=== PATIENT | male | born 1960 | race Two or more races ===

== ENCOUNTER 2016-10-12 17:03 | Emergency (ER) | payer OTHER ==
[2016-10-12] MEDS ORDERED: MAALOX/LIDO2%VISC/SIMETHICONE 40 ML BOT ONE (18:14)
[2016-10-12 18:31] LABS: ABSOLUTE NEUTROPHIL COUNT 4.8 K/mm3 (1.8-7.7); BASO % 0.4 % (0.2-1.0); EOS # 0.2 (0.0-0.5); EOS % 2.4 % (0.9-2.9); HEMATOCRIT 43.7 % (32.0-52.0); HEMOGLOBIN 14.2 gm/l (14.0-18.0); IMM NEUT% 0.3 % (0-1); LYMPH # 1.5 (1.0-4.8); LYMPH % 21.3 % (15-45); MEAN CELL VOLUME 88.6 fl (80.0-94.0); MEAN CORPUSCULAR HEMOGLOBIN 28.8 pg (27.0-31.0); MEAN CORPUSCULAR HGB CONC 32.5 g/dl (33.0-37.0); MEAN PLATELET VOLUME 10.5 fl (7.4-10.4); MONO # 0.6 (0.0-0.8); MONO % 7.9 % (4-12); NEUT % 67.7 % (43-75); PLATELET COUNT 390 K/mm3 (130-400); RED CELL DISTRIBUTION WIDTH 13.8 % (11.5-14.5)
[2016-10-12] MEDS ORDERED: HEPARIN SODIUM PREMIX 500 ML IV ONE (18:32)
[2016-10-12] MEDS ORDERED: Heparin Sodium 5000 unit/0.5ml syringe ONE (18:32)
[2016-10-12] MEDS ORDERED: NITROGLYCERIN/D5W 25 MG/250 ML 250 ML IV ONE (18:32)
[2016-10-12 18:49] LABS: TROPONIN I 0.38 ng/ml (0.0-0.06)
[2016-10-12 18:53] LABS: ALB/GLOB RATIO 1.2 (>1.0); ALBUMIN 3.6 gm/dL (3.5-5.7); CALCIUM 8.4 mg/dL (8.6-10.3); CKMB ISOENZYME 3.3 ng/ml (0.6-6.3)
== END 2016-10-12 18:58 | disposition other institution (70) ==
LOC: ED 17:03
DX: I21.3 ST elevation (STEMI) myocardial infarction of unspecified site (principal)
CPT/HCPCS: 83880; 85379; 85025; 82553; 80053; 84484; 96375; 99284; 96374; 99285; A9270; J1644